=== PATIENT | female | born 1935 | race Caucasian/White ===

== ENCOUNTER 2016-03-25 15:52 | Inpatient (IN) | payer MEDICARE ==
[~2016-03-25] VITALS: Ht 167.6 cm; Wt 65.6 kg
--- NOTE | ~2016-03-25 | CON ---
[place], [place] REPORT OF CONSULTATION NAME: JUAN CARLOS [facility]IAS [facility]: [id number] UNIT #: [id number] ROOM: 522 DOCTOR: SURAJ SHAH MARY BIRTHDATE: [birth year] DOS: PSYCHIATRIC CONSULTATION HISTORY OF PRESENT ILLNESS: This is an 80-year-old female with a history of Alzheimer's dementia that was brought to the Emergency Room by her daughter due to inability to care for herself. The daughter who is the power of attorney lawyer states that she was diagnosed years ago with dementia and has always been able to live on her own and take care of herself, but things have been getting to deteriorate, not taking care of ADLs, bathing, cooking, general care of herself in the home, has become paranoia to combative, to those around her also threatening violence not only to herself and family members, but to the Emergency Room doctor when he was assessing her. Poor memory, poor sleep. She was admitted to rule out organic factors. PAST MEDICAL HISTORY: Includes AFib, CHF, COPD, hypertension. PSYCHIATRIC DIAGNOSIS: AXIS I: Alzheimer dementia with behaviors. PLAN: The patient is not on any dementia meds at this time. She is allergic to RIVASTIGMINE, which is EXELON. We will go ahead and start her on Namenda 5 mg every day to see if I can help a little bit with cognition, decrease behaviors and help increase ADLs. They also gave her a one-time dose of Restoril this morning because she is not sleeping. I am going to discontinue that in lieu of Remeron 15 mg at bedtime. She has got poor appetite, not sleeping and behaviors consistent with sundowning, so I think the Remeron will kind of help with this. We also made p.r.n. Ativan available for now. So far, her labs have been inconclusive. There is nothing significant jumping out on her CBC, her chemistries, I checked the B12 which is within normal range, serum ammonia level is normal, vitamin D still pending. Her thyroid is fine. In fact, she is subtherapeutic with her coagulation for her AFib, and for the most part her urine was negative, there was 1+ leukocytes and that is about it. I discussed with nurses that this person will be an appropriate candidate for the Behavioral Health Unit as the family is agreeable to it. This is conversation that they will have to have. Apparently, Dr. Jane did see her yesterday and deemed her incompetent at this point in time. So, I think we need to rule out all organic possibilities and then we can go from there. So the plan will be go ahead and start the dementia meds and the Remeron. I have already called the unit and told them to be advised if the family members are agreeable, we will go ahead and when she has cleared medically transfer her to Behavioral Health Unit and go from there. [place], [place] REPORT OF CONSULTATION NAME: JUAN CARLOS IGLESIAS Mari UNIT #: [id number] ROOM: 522 DOCTOR: SURAJ SHAH BIRTHDATE: [birth year] MARY SHAH CNP CM:CONSTR:REPORT OF CONSULTATION 0845 05/03/16 1354 interface
--- NOTE | ~2016-03-25 | CON ---
[place], [place] REPORT OF CONSULTATION NAME: [id number] UNIT #: [id number] ROOM: 522 DOCTOR: CHRIS PEPPER ED.D (YARITZA) BIRTHDATE: [birth year] DOS: HISTORY OF PRESENT ILLNESS: The patient is an 80-year-old female referred by the hospitalist for competency evaluation. At the present time, this patient is on the 5th floor at [facility]. The patient did not know whether or not she was any longer and could not name her children. She said she had several children who were very old and she also had several 3-year-old children of her own. Clearly, this is not accurate. She states she did work at [employer] in [place], [place]. She does not know her family physician. Her medical history is pertinent for atrial fibrillation, COPD, congestive heart failure, hypertension and dementia. Her medications include lisinopril, Xarelto, and Zolpidem. Her daughter, Katherine Flores, is the patient's power of state's attorney and is making all decisions for this patient. Her short-term and long-term memory were markedly impaired. In my opinion, this patient is not competent to make informed healthcare decisions. She clearly suffers from major neurocognitive disorder and all decisions regarding her care should be made by her daughter. DIAGNOSIS: Major neurocognitive disorder-Alzheimer disease. RECOMMENDATIONS: In my opinion, all medical and personal decisions regarding this patient should be made by her power of state's attorney, who is apparently her daughter, Katherine Flores. Thank you very much for this consult. CHRIS PEPPER ED.D CM:CONSTR:REPORT OF CONSULTATION 2059 05/03/16 1351 interface
--- NOTE | ~2016-03-25 | PROC NOTE ---
[place], [place] PROCEDURE NOTE NAME: JUAN CARLOS IGLESIAS [facility] #: [id number] UNIT #: [id number] ROOM: 522 DOCTOR: JOSE MORENO BIRTHDATE: [birth year] DOS: 03/29/2016 MODIFIED BARIUM SWALLOW LOCATION: [facility], room 522, bed 1. DATE OF EVALUATION: 03/29/2016. DOCTOR: Dr. Jerome. RADIOLOGIST: Dr. Corbett. BACKGROUND INFORMATION: The patient is an 80-year-old female who was seen for modified barium swallow. This test was ordered to rule out aspiration due to abnormal bedside swallow eval. The patient was admitted due to altered awareness. Further medical history includes MVP murmur, GERD, HTN, emphysema, AFib and Alzheimer disease. She currently receives a regular diet and thin liquids. For today's assessment, the patient was alert and able to follow commands. Respiratory status was within normal limits. Oral peripheral examination revealed presence of upper and lower denture with adequate fit reported. Lingual, labial, and buccal skills were within normal limits in terms of strength, range of motion, and coordination. The patient was able to volitionally cough and swallow. METHODS AND MATERIALS USED FOR THE EXAM: The patient was positioned in the lateral plane and the exam was viewed under fluoroscopy. The patient was presented with a variety of consistencies to assess swallowing skills including applesauce mixed with barium presented in half teaspoon amounts, barium-coated cookie and banana in bite size pieces and thin liquid barium taken both by cup and straw. ORAL PHASE: Unremarkable. PHARYNGEAL PHASE: The pharyngeal swallow occurred within a timely manner. During the swallow, laryngeal elevation and epiglottic function were adequate; however, when patient consumed thin liquids by straw penetration did occur. The patient was consuming a large amount at this time. No residue was observed post-swallow in the pharynx. ESOPHAGEAL PHASE: This phase of the swallow was not formally assessed during this examination. IMPRESSIONS AND RECOMMENDATIONS: Based upon assessment results, this 80-year-old female exhibited a mild pharyngeal dysphagia characterized by penetration with thin liquids when using a straw. No other difficulty was observed. Recommend the patient remain on present diet with liquids to be consumed by cup only. Results and recommendations were shared with the patient and her nurse and they verbalized understanding. Recommend one followup visit to ensure patient's understanding and compliance with recommendation due to her confusion. [place], [place] PROCEDURE NOTE NAME: JUAN CARLOS IGLESIAS UNIT #: [id number] ROOM: 522 DOCTOR: JOSE MORENO BIRTHDATE: [birth year] Thank you very much for this referral. Should you have any questions regarding this patient, please contact the speech pathologist at [phone]. JOSE MORENO CM:PROCNOTE:PROCEDURE NOTE 1034 [id number] JOSE MORENO
[~2016-03-25 15:52] MED LIST: ALBUTEROL SULF0.5 M1 INH; CALCIUM WITH D1 CTB PO; DILTIAZEM HCL30 MG PO; FERROUS SULFAT325 MG PO; GINKO BILOBA60 MG PO; LISINOPRIL/HCTZ1 TAB PO; PROTONIX40 MG PO; SUPER EPA 1001000 MG PO; TAMIFLU 75MG CA75 MG PO; XARE20MG PO
[2016-03-25 16:26] VITALS: BP 129/85
[2016-03-25] MEDS ORDERED: ZOLPIDEM TART5 MG PO (16:47)
[2016-03-25] MEDS ORDERED: LISINOPRIL AND1 TAB PO (16:48)
[2016-03-25 17:49] LABS: BASO % 0.3 % (0.0-1.0); EOS # 0.2 10*3/uL (0.0-0.4); EOS % 3.5 % (1.0-4.0); HEMATOCRIT 42.1 % (37.0-47.0); HEMOGLOBIN 13.6 g/dl (12.0-16.0); LYMPH # 1.7 10*3/uL (1.3-4.4); LYMPH % 25.4 % (27.0-41.0); MEAN CELL VOLUME 97.9 fl (81.0-99.0); MEAN CORPUSCULAR HGB 31.6 pg (27.0-31.0); MEAN CORPUSCULAR HGB CONC 32.3 g/dl (33.0-37.0); MEAN PLATELET VOLUME 9.1 fl (9.6-12.3); MONO # 0.7 10*3/uL (0.1-1.0); MONO % 10.7 % (3.0-9.0); NEUT # 4.1 10*3/uL (2.3-7.9); PLATELET COUNT AUTOMATED 154 10*3/uL (130-400); RED CELL DISTRI WIDTH 13.1 % (0-14.5); WHITE BLOOD COUNT 6.8 10*3/uL (4.8-10.8)
[2016-03-25 18:00] VITALS: BP 124/74
[2016-03-25 18:00] LABS: INTERNATIONAL NORM RATIO 1.1 (2.0-3.5); PROTHROMBIN TIME 11.6 SECONDS (9.0-12.4)
[2016-03-25 18:08] LABS: ALBUMIN 3.3 gm/dl (3.1-4.5); ALKALINE PHOSPHATASE 85 U/L (45-117); BILIRUBIN, TOTAL 0.3 mg/dl (0.2-1.0); BUN 24 mg/dl (7-24); CARBON DIOXIDE 33 mmol/L (21-32); CHLORIDE 102 mmol/L (98-107); CPK 55 U/L (26-192); EST GLOM FILT AFRICAN AMERICAN 58 ml/min; GLUCOSE 96 mg/dL (65-99); MAGNESIUM 1.9 mg/dL (1.5-2.1); SGOT/AST 28 IU/L (3-35); SGPT/ALT 24 U/L (12-78); SODIUM 141 mmol/L (136-145)
[2016-03-25 18:11] LABS: TROPONIN I < 0.015 ng/ml (<0.5)
[2016-03-25 18:52] LABS: BILIRUBIN NEGATIVE (NEGATIVE); BLOOD TRACE-INTACT (NEGATIVE); CLARITY SL CLOUDY (CLEAR); COLOR YELLOW (YELLOW); GLUCOSE NEGATIVE (NEGATIVE); KETONE TRACE (NEGATIVE); LEUKO ESTERASE 1+ (NEGATIVE); NITRITE NEGATIVE (NEGATIVE); PROTEIN NEGATIVE (NEGATIVE)
[2016-03-25 19:14] LABS: URINE REFLEX COMMENT YES (NO); WBC 21-30 wbc/hpf (0-5)
[2016-03-25 20:00] VITALS: BP 130/70
[2016-03-25 23:00] VITALS: BP 140/88
[2016-03-25 23:36] VITALS: BP 149/97
[2016-03-26] VITALS: BP 146/80
[2016-03-26 00:52] LABS: CKMB 1.4 ng/ml (0.5-3.6); CPK 55 U/L (26-192)
[2016-03-26 00:55] LABS: TROPONIN I < 0.015 ng/ml (<0.5)
[2016-03-26 06:01] LABS: BASO % 0.6 % (0.0-1.0); EOS # 0.2 10*3/uL (0.0-0.4); EOS % 3.1 % (1.0-4.0); LYMPH # 1.5 10*3/uL (1.3-4.4); LYMPH % 29.2 % (27.0-41.0); MEAN CELL VOLUME 97.1 fl (81.0-99.0); MEAN CORPUSCULAR HGB 31.6 pg (27.0-31.0); MEAN CORPUSCULAR HGB CONC 32.5 g/dl (33.0-37.0); MONO # 0.6 10*3/uL (0.1-1.0); MONO % 11.1 % (3.0-9.0); NEUT # 2.9 10*3/uL (2.3-7.9); NEUT % 55.6 % (47.0-73.0); PLATELET COUNT AUTOMATED 135 10*3/uL (130-400); RED BLOOD COUNT 4.12 10*6/uL (4.10-5.10); RED CELL DISTRI WIDTH 12.9 % (0-14.5); WHITE BLOOD COUNT 5.1 10*3/uL (4.8-10.8)
[2016-03-26 06:16] LABS: CKMB 1.6 ng/ml (0.5-3.6); CPK 51 U/L (26-192); TROPONIN I < 0.015 ng/ml (<0.5)
[2016-03-26 06:32] LABS: HEMOGLOBIN A1c 5.5 % (4.8-5.6)
[2016-03-26 06:41] LABS: BUN 20 mg/dl (7-24); CARBON DIOXIDE 31 mmol/L (21-32); CHLORIDE 104 mmol/L (98-107); EST GLOM FILT AFRICAN AMERICAN > 60 ml/min; FREE T4 1.23 ng/dl (0.76-1.46); GLUCOSE 85 mg/dL (65-99); MAGNESIUM 1.8 mg/dL (1.5-2.1); PHOSPHOROUS 3.2 mg/dL (2.5-4.9); POTASSIUM 3.9 mmol/L (3.5-5.1); SODIUM 144 mmol/L (136-145)
[2016-03-26 07:15] LABS: VITAMIN D, 25-HYDROXY 26.3 ng/mL (30-100)
[2016-03-26 08:00] VITALS: BP 136/98
[2016-03-26 12:00] VITALS: BP 138/82
[2016-03-26 12:13] LABS: CKMB 1.6 ng/ml (0.5-3.6)
[2016-03-26 12:23] LABS: CPK 72 U/L (26-192); TROPONIN I < 0.015 ng/ml (<0.5)
[2016-03-26 16:00] VITALS: BP 151/88
[2016-03-26 20:00] VITALS: BP 157/84
[2016-03-27 02:45] VITALS: BP 142/82
[2016-03-27 07:07] LABS: FREE THYROXIN INDEX/T7 3.4 (1.5-5.4); THYROID STIM HORMONE (HS) 1.72 uIU/ml (0.358-4.75); THYROXINE (T4) TOTAL 10.1 ug/dl (4.8-13.9)
[2016-03-27 08:00] VITALS: BP 112/72
[2016-03-27 12:00] VITALS: BP 100/50; BP 122/66
[2016-03-27 16:00] VITALS: BP 97/59
[2016-03-27 20:00] VITALS: BP 102/63
[2016-03-28] VITALS: BP 128/69
[2016-03-28 08:00] VITALS: BP 124/54
[2016-03-28 12:00] VITALS: BP 148/79
[2016-03-28 16:00] VITALS: BP 140/58
[2016-03-28 20:00] VITALS: BP 102/54
[2016-03-29] VITALS: BP 119/63
[2016-03-29 08:00] VITALS: BP 118/68
[2016-03-29 12:00] VITALS: BP 139/74
[2016-03-29 16:00] VITALS: BP 130/72
[2016-03-29 20:00] VITALS: BP 126/55
[2016-03-30] VITALS: BP 122/57
== END 2016-03-30 11:17 | disposition other institution (70) | DRG 682 ==
LOC: ED 15:52 → EDHOLD 21:37 → 5E 21:37
PROVIDERS: Nurse Practitioner Adult Health; Student in an Organized Health Care Education/Training Program
PROC: BD11YZZ Fluoroscopy of Esophagus using Other Contrast (ICD-10-PCS; principal; 2016-03-29)
DX: N17.0 Acute kidney failure with tubular necrosis (principal); G93.40 Encephalopathy, unspecified; E44.0 Moderate protein-calorie malnutrition; N39.0 Urinary tract infection, site not specified; I48.0 Paroxysmal atrial fibrillation; J44.9 Chronic obstructive pulmonary disease, unspecified; G30.1 Alzheimer's disease with late onset; I50.9 Heart failure, unspecified; I11.0 Hypertensive heart disease with heart failure; F02.81 Dementia in other diseases classified elsewhere, unspecified severity, with behavioral disturbance; E55.9 Vitamin D deficiency, unspecified; F01.50 Vascular dementia, unspecified severity, without behavioral disturbance, psychotic disturbance, mood disturbance, and anxiety; Z90.710 Acquired absence of both cervix and uterus; Z87.891 Personal history of nicotine dependence; Z82.49 Family history of ischemic heart disease and other diseases of the circulatory system; Z82.0 Family history of epilepsy and other diseases of the nervous system; Z88.8 Allergy status to other drugs, medicaments and biological substances; Z79.899 Other long term (current) drug therapy; Z68.20 Body mass index [BMI] 20.0-20.9, adult

== ENCOUNTER 2016-07-19 17:39 | Inpatient (IN) | payer MEDICARE, MEDICAID ==
[~2016-07-19] VITALS: Ht 167.6 cm; Wt 62.7 kg
--- NOTE | ~2016-07-19 | PROC NOTE ---
[place], [place] PROCEDURE NOTE NAME: JU[facility]AS [id number] UNIT #: [id number] ROOM: 409 DOCTOR: MICHELLE GA MD,MARIA LUZ BIRTHDATE: [birth year] DOS: 07/27/2016 PROCEDURE: Bronchoscopy. PREOPERATIVE DIAGNOSIS: Persistent nonproductive cough, inability to clear of secretion. POSTOPERATIVE DIAGNOSIS: Severe acute tracheobronchitis was noted with removal of the mucopurulent material for the patient, impaction of the mucus plugs and endobronchial tree bilaterally. PROCEDURE DESCRIPTION: Informed consent obtained from the patient. The patient was brought to the OR and placed in supine position. Conscious sedation administered by the Anesthesia Department. After achieving appropriate sedation, airway introduced into the mouth. Bronchoscope advanced to the airway into laryngeal area, epiglottis and vocal cords were seen. The vocal cords were noted yellowish in color moving symmetrically with movements. The bronchoscope entered the vocal cord and tracheal lumen. Tracheal lumen shows moderate amount of very purulent secretion for the patient with mucus secretion mixture suctioned out the yessica level. Yessica noted sharp. Right upper, right middle, right lower, left upper, and lingular lower lobe bronchi were all examined. Similar secretion present in tracheal lumen was causing impaction of the endobronchial tree bilaterally. All secretions suctioned out clear with the help of normal saline wash and sent for cultures. Postoperative findings were discussed with the patient's family members for the patient in the recovery room for the patient after completion of the procedure. No complications were noted during or after the procedure except transient hypoxia treated with supplemental oxygen. No change in treatment will be necessary at this time based on the current culture results. Bronchial washing culture will be monitored for the patient and then modification of antibiotic will be made accordingly. MARIA LUZ MARTINEZ MD CM:PROCNOTE:PROCEDURE NOTE [id number] MARIA LUZ GA MD
--- NOTE | ~2016-07-19 | PR ---
[place], [place] PROGRESS NOTE NAME: JUAN CARLOS IGLESIAS UNIT #: [id number] ROOM: 409 DOCTOR: MARIA LUZ BERNSTEIN MD BIRTHDATE: [birth year] DOS: 07/26/2016 PULMONARY PROGRESS NOTE SUBJECTIVE: The patient has been noted comfortable at this time. She has been noted history of dementia for this patient as well. The patient denies any symptoms of chest pain. Coughing has been noted intermittent for the patient without any sputum expectoration. She was planned for fiberoptic bronchoscopy the patient to be done tomorrow. OBJECTIVE: VITAL SIGNS: For the patient, which were recorded showed the temperature of the patient noted as normal. The respiratory rate of the patient recorded as 20. The heart rate of 58. The blood pressure noted 106/50. HEENT: Examination shows head was atraumatic. Eyes nonicterus. NECK: Supple. CARDIOVASCULAR SYSTEM: S1, S2 audible. LUNGS: The patient was noted without any crackles. Expiratory wheezing noted diffusely in the lungs unchanged. ABDOMEN: Soft, nontender. LABORATORY DATA: CBC this morning, hemoglobin 11.9, hematocrit normal, platelet count normal, WBC count was normal. CMP of the patient this morning, BUN 32, creatinine was normal. Total protein of 5.9. IMPRESSION: The patient who had been currently treated in the hospital for the patient for the medical management of acute hypoxic respiratory failure with exacerbation of chronic obstructive pulmonary disease for this patient and tracheobronchitis, incident finding 7 mm pulmonary nodule, history of dementia. PLAN OF TREATMENT: Proceed with the bronchoscopy of the patient as planned for the patient tomorrow morning. The consent will be obtained from the patient's family members for the bronchoscopy. No other changes in treatment at this time will be needed immediately. The pulmonary nodule of the patient noted in the lung will be monitored later on as an outpatient. [place], [place] PROGRESS NOTE NAME: JUAN CARLOS IGLESIAS UNIT #: [id number] ROOM: 409 DOCTOR: MARIA LUZ BERNSTEIN MD BIRTHDATE: [birth year] MARIA LUZ MARTINEZ MD CM:RONALD [place]: 07/26/16 1415 0629 MARIA LUZ GA MD 07/27/16 0629 interface
--- NOTE | ~2016-07-19 | PR ---
[place], [place] PROGRESS NOTE NAME: JUAN CARLOS IGLESIAS [facility] #: [id number] UNIT #: [id number] ROOM: 409 DOCTOR: MICHELLE GA MD,MARIA LUZ BIRTHDATE: [birth year] DOS: 07/27/2016 PULMONARY PROGRESS NOTE SUBJECTIVE: She has been noted about the same for the patient yesterday with nonproductive cough and chest congestion. She is n.p.o. past midnight. Bronchoscopy planned for today. She had not been noted with any acute hemodynamic changes. OBJECTIVE: VITAL SIGNS: For the patient, which were recorded showed the temperature of the patient noted as normal. The respiratory rate of the patient recorded at 20, heart rate 86, blood pressure 107/74. The pulse oxygen saturation of the patient noted on 2 liters 97% saturation. HEENT: Examination shows head was atraumatic. Eyes nonicterus. NECK: Supple. CARDIOVASCULAR SYSTEM: S1, S2 audible. LUNGS: Noted with general reduction in the breath sounds of the patient with expiratory wheezing, no crackles. ABDOMEN: Soft, nontender. IMPRESSION: 1. Persistent acute exacerbation of chronic obstructive pulmonary disease, nonproductive cough. 2. History of Alzheimer dementia. The patient is pleasant, confusion. PLAN OF TREATMENT: Continue the patient's current therapy as previously in progress. Bronchoscopy done today. Any modification treatment if necessary will be done after the bronchoscopy. MARIA LUZ MARTINEZ MD CM:PNTRANS [phone] MARIA LUZ GA MD 07/28/16 0131 interface
--- NOTE | ~2016-07-19 | PR ---
[place], [place] PROGRESS NOTE NAME: JUAN CARLOS IGLESIAS UNIT #: [id number] ROOM: 409 DOCTOR: MARIA LUZ BERNSTEIN MD BIRTHDATE: [birth year] DOS: 07/28/2016 PULMONARY PROGRESS NOTE SUBJECTIVE: She has been noted pleasant and confusion, currently resting comfortably with reduction and improvement in the chest congestion. Cough was noted on examination. OBJECTIVE: VITAL SIGNS: For the patient, which was recorded shows the temperature noted as normal, respiratory rate 18, heart rate 77, blood pressure . Pulse oxygen saturation on 2 liters nasal cannula 95% saturation. HEENT: Examination shows no new change. NECK: Supple. CARDIOVASCULAR SYSTEM: S1, S2 audible. LUNGS: The patient was noted without any wheezing or crackles at the present time. ABDOMEN: Soft, nontender. LABORATORY DATA: Culture of the bronchial washing preliminary showing normal jennifer. The Gram stain shows moderate white blood cells, few epithelial cells, moderate gram-positive cocci in pairs and clusters with few budding yeast. IMPRESSION: 1. Status post bronchoscopy for the patient with significant reduction and improvement in respiratory symptoms. Preliminary bronchial washing culture for the patient was noted without any bacterial growth isolation. 2. Improving acute exacerbation of chronic obstructive pulmonary disease and acute tracheobronchitis. 3. Chronic Alzheimer dementia. PLAN OF TREATMENT: The patient could be considered for discharge to the [facility] facility for this patient for continued treatment. In the meantime, all other treatment to be continued. Usual care. Culture results will be monitored. [place], [place] PROGRESS NOTE NAME: JUAN CARLOS IGLESIAS UNIT #: [id number] ROOM: 409 DOCTOR: MARIA LUZ BERNSTEIN MD BIRTHDATE: [birth year] MARIA LUZ MARTINEZ MD CM:PNTRANS [phone] MARIA LUZ GA MD 07/28/16 7555 interface
--- NOTE | ~2016-07-19 | CON ---
[place], [place] REPORT OF CONSULTATION NAME: JUAN CARLOS IGLESIAS UNIT #: [id number] ROOM: 409 DOCTOR: MICHELLE GA MD,MARIA LUZ BIRTHDATE: [birth year] DOS: 07/22/2016 PULMONARY CONSULTATION EVALUATION AND MANAGEMENT CONSULTATION REQUESTED BY: Hospitalist services. REASON FOR CONSULTATION: Assess the patient for ongoing acute respiratory symptoms of coughing and wheezing for this patient as well as pulmonary nodule as well. HISTORY OF PRESENT ILLNESS: This is an 81-year-old female patient with history of Alzheimer dementia, unable to communicate verbally and more accurately for the patient for the history has been assessed. The patient has been admitted in the hospital under care of primary care attending as the hospitalist services. The patient's symptoms have been noted with gradual progression for the patient with chest congestion, coughing, and decreased appetite and fever. The patient was also noted with significant hypoxia as well. The patient has been suspected possibility of acute pneumonia for this patient and treated with Rocephin intravenous, but the patient failed to respond to the treatment. The oxygen saturation of the patient was recorded as 70% for this patient in the Emergency Room at the time of the assessment. The patient was also noted more confusional status as described by the patient's family members. She has been currently getting intravenous antibiotic and other treatment including oxygen supplementation for the medical management of the current respiratory failure and ongoing other respiratory problems. REVIEW OF SYSTEMS: Constitutional symptoms cannot be completed because of inability to verbally communicate with history of underlying dementia. No family members have been available at this time to discuss the current findings for this patient as well. PAST MEDICAL HISTORY: Reported, 1. Atrial fibrillation. 2. Congestive heart failure, unknown kind. 3. History of COPD. 4. Essential hypertension. 5. Osteopetrosis. 6. Protein calorie malnutrition. 7. Vitamin D deficiency. 8. Alzheimer dementia. SURGICAL HISTORY: Reported as, 1. History of hip surgery on the left side for the patient and repair in 2017. 2. History of hysterectomy. 3. Lower back surgery. SOCIAL HISTORY: The patient has been noted with history of tobacco use, duration and quantity unknown. There is no history of alcohol use or illicit drug use was reported. [place], [place] REPORT OF CONSULTATION NAME: NELI IGLESIASCHERYL Guerra UNIT #: [id number] ROOM: 409 DOCTOR: MICHELLE GA MD,MARIA LUZ BIRTHDATE: [birth year] FAMILY HISTORY: Father at the age of 8080 years old from complications of heart problem. Mother at the age of 6666 years old from complications of Alzheimer dementia. HOME MEDICATIONS: Noted for the patient medication which has became previously noted as use of Xanax, Rocephin, Tussin-DM, Vicodin, DuoNeb, lisinopril-hydrochlorothiazide, loratadine, melatonin, multivitamin, omeprazole, Xarelto, sertraline, Nasacort and other p.r.n. medications. The patient was also receiving Rocephin 1 gram for this patient daily as well. DRUG ALLERGIES: Noted allergies to the EXELON PATCH. PHYSICAL EXAMINATION: GENERAL: This is an 81-year-old female who has been noted with Alzheimer dementia for this patient, but noted awake and alert without any distress at the time of the assessment. Height for the patient was noted 5 feet 6 inches, weight 127 pounds, BMI 20.5. VITAL SIGNS: Normal temperature, respiratory rate 18-20, heart rate of 87-95, blood pressure 137/63-138/62. The pulse oxygen saturation on 2 liters nasal cannula at this time was noted as 94% saturation. HEENT: Head was atraumatic. Eyes: No icterus. Some loss of muscles of mastication. NECK: Supple. CARDIOVASCULAR SYSTEM: S1, S2 audible. LUNGS: Noted without any wheezing. Questionable crackles noted in the lung bases bilaterally. ABDOMEN: Flat, soft, nontender. EXTREMITIES: Shows no edema, clubbing, or cyanosis. CENTRAL NERVOUS SYSTEM: Could not be examined, the patient's lack of cooperation and understanding the questions. SKIN: Visible skin showed no lesions or rashes. MUSCULOSKELETAL SYMPTOMS: No gross deformities noted. LABORATORY DATA: Admission lactic acid on July 19, 2.1, followup for this patient on same day 1.3. CBC of the patient of 07/19 on admission were noted normal CBC. CMP for the patient on 07/19, normal BUN and creatinine, other electrolytes normal except CO2 mildly elevated at 34. The blood culture from the 07/19, showed no bacterial growth. Final culture results were pending. CBC of the patient remains normal for the patient which were repeated on 07/21. The BMP of the patient on 07/21, noted BUN 27, creatinine was normal. Potassium yesterday was noted at 3.2. The BMP that was done this morning, BUN remains mildly elevated 25. The potassium and other electrolytes noted grossly normal. Blood culture from the 9th of this month shows no bacterial growth. CK-MB and troponin of the patient were normal on and , which were done serially. Radiology data reviewed for this patient. The chest x-ray of the patient that was done on 07/19/2016 for the patient was reviewed with the patient shows changes of COPD for this patient was noted with hyperinflation without any acute pulmonary infiltration. CT scan of the chest for the patient was done shows 7 mm nodule was noted in the left lower lobe for the patient without any evidence of pulmonary infiltration, diffuse emphysematous changes for the patient were [place], [place] REPORT OF CONSULTATION NAME: JUAN CARLOS IGLESIAS UNIT #: [id number] ROOM: 409 DOCTOR: MARIA LUZ BERNSTEIN MD BIRTHDATE: [birth year] noted. There were no previous CT scans of the chest were available for the patient to assess and compare the current pulmonary nodule. IMPRESSION: 1. The patient who has been currently admitted to the hospital for acute hypoxic respiratory failure, result of acute exacerbation of chronic obstructive pulmonary disease and acute tracheobronchitis with failed outpatient treatment. 2. Incidental finding of a 7 mm nodule for the patient was noted in the left lower lobe for the patient in subpleural area at this time, significance unknown. 3. Past history of nicotine abuse was also described. 4. History of Alzheimer dementia for the patient and multiple other medical problems. PLAN OF TREATMENT: Continue use of the bronchodilators and oxygen supplementation for this patient at this time and use of Solu-Medrol. The dose of Solu-Medrol for the patient will be decreased to b.i.d. dosing since the patient's wheezing has been improving at the present time. Continue the oxygen supplementation to maintain the saturation 92% or greater. Assessment of pulmonary nodule for the patient needs to be done as an outpatient with followup CT scan for this patient since the PET scan will have low sensitivity because of the size of less than 10 mm in size. Sputum for Gram stain culture for the patient if the patient is able to expectorate for this patient could be sent. Other therapy, plan and management to be continued as in progress as well. Usual care, all other supportive plan of therapy and care at this time without any further changes. Thanks for allowing me to participate in the care of this patient. MARIA LUZ MARTINEZ MD CM:CONSTR:REPORT OF CONSULTATION 1423 07/23/16 0659 interface
--- NOTE | ~2016-07-19 | PR ---
[place], [place] PROGRESS NOTE NAME: JUAN CARLOS IGLESIAS UNIT #: [id number] ROOM: 409 DOCTOR: MARIA LUZ BERNSTEIN MD BIRTHDATE: [birth year] DOS: 07/25/2016 PULMONARY PROGRESS NOTE SUBJECTIVE: She has been still noted with significant chest congestion and coughing, not expectorating much sputum. She was not noted with symptoms of chest pain. The patient has been noted with chronic dementia, unable to most likely accurately answer the questions. She was noted with excessive coughing at the time of assessment. OBJECTIVE: VITAL SIGNS: For the patient shows a normal temperature, respiratory rate 18, heart rate 96, blood pressure 95/55. Pulse oxygen saturation of the patient noted on 2 liters nasal cannula 97% saturation. HEENT: Examination shows head was atraumatic. Eyes nonicterus. CARDIOVASCULAR: S1, S2 audible. LUNGS: Noted decreased breath sounds with inspiratory wheezing. No crackles. ABDOMEN: Soft, nontender. LABORATORY DATA: The patient's CBC this morning, WBC count 9.3, hemoglobin 11.9, platelet count was noted 195,000. CMP of the patient this morning noted BUN 32, creatinine was normal. Albumin of 2.8. IMPRESSION: The patient with persistent coughing, wheezing was still noted at the present time with acute hypoxic respiratory failure and exacerbation of chronic obstructive pulmonary disease and tracheobronchitis. Retained secretion of the patient's mucus impaction of the airways was noted. PLAN OF TREATMENT: The patient was suggested fiberoptic bronchoscopy for the further management of patient's persistent cough and wheezing with current maximum medical therapy. The procedure consent will be obtained from the family members, if agreeable for that, it will be done for the patient on Monday based on the schedule availability in the OR. Other treatment plan at this time will be continued otherwise. Usual care. Supportive plan of therapy and other medical management, plan. [place], [place] PROGRESS NOTE NAME: JUAN CARLOS IGLESIAS UNIT #: [id number] ROOM: 409 DOCTOR: MARIA LUZ BERNSTEIN MD BIRTHDATE: [birth year] MARIA LUZ MARTINEZ MD CM:PNTRANS [id number] MARIA LUZ GA MD 07/26/16 0050 interface
[2016-07-19 17:39] VITALS: BP 96/63
[~2016-07-19 17:39] MED LIST changes: +LISINOPRIL AND1 TAB PO; +ZOLPIDEM TART5 MG PO
[2016-07-19 18:10] LABS: HEMOGLOBIN 13.6 g/dl (12.0-16.0); MEAN PLATELET VOLUME 9.3 fl (9.6-12.3)
[2016-07-19] MEDS ORDERED: DUONEB 3 MG/3 ML3 M1 INH (18:10)
[2016-07-19] MEDS ORDERED: CLARITIN10 MG PO (18:10)
[2016-07-19] MEDS ORDERED: MELATONIN3 MG PO (18:11)
[2016-07-19] MEDS ORDERED: LISINOPRIL-HYDR1 TA1 PO (18:11)
[2016-07-19] MEDS ORDERED: HYDROCODONE BIT1 T11 PO (18:11)
[2016-07-19] MEDS ORDERED: NASACORT A55 MCG/Act NS (18:12)
[2016-07-19] MEDS ORDERED: MULTIPLE VITAMI1 TA3 PO (18:12)
[2016-07-19] MEDS ORDERED: CEFTRIAXONE1 GM IJ (18:12)
[2016-07-19] MEDS ORDERED: OMEPRAZOLE20 M2 PO (18:12)
[2016-07-19] MEDS ORDERED: NATURAL LAXATI8.6 MG PO (18:13)
[2016-07-19] MEDS ORDERED: TUSSIN COU15 MG/5 ML PO (18:13)
[2016-07-19] MEDS ORDERED: TYLENOL325 M1 PO (18:14)
[2016-07-19] MEDS ORDERED: XANAX0.25 MG PO (18:14)
[2016-07-19] MEDS ORDERED: XARELTO15 M1 PO (18:14)
[2016-07-19] MEDS ORDERED: ZOLOFT50 MG PO (18:15)
[2016-07-19 18:30] LABS: ALBUMIN 3.4 gm/dl (3.1-4.5); ALKALINE PHOSPHATASE 74 U/L (45-117); BILIRUBIN, TOTAL 0.3 mg/dl (0.2-1.0); BUN 24 mg/dl (7-24); CARBON DIOXIDE 34 mmol/L (21-32); CHLORIDE 100 mmol/L (98-107); EST GLOM FILT AFRICAN AMERICAN > 60 ml/min; GLUCOSE 124 mg/dL (65-99); POTASSIUM 4.1 mmol/L (3.5-5.1); SGOT/AST 32 IU/L (3-35); SGPT/ALT 22 U/L (12-78); SODIUM 138 mmol/L (136-145); TOTAL PROTEIN 7.4 gm/dL (6.4-8.2)
[2016-07-19 18:31] LABS: BASO % 0.4 % (0.0-1.0); EOS # 0.1 10*3/uL (0.0-0.4); HEMATOCRIT 42.9 % (37.0-47.0); LYMPH # 1.3 10*3/uL (1.3-4.4); LYMPH % 26.2 % (27.0-41.0); MEAN CELL VOLUME 97.1 fl (81.0-99.0); MEAN CORPUSCULAR HGB 30.8 pg (27.0-31.0); MEAN CORPUSCULAR HGB CONC 31.7 g/dl (33.0-37.0); MONO # 0.6 10*3/uL (0.1-1.0); MONO % 12.5 % (3.0-9.0); NEUT % 59.9 % (47.0-73.0); PLATELET COUNT AUTOMATED 132 10*3/uL (130-400); RED BLOOD COUNT 4.42 10*6/uL (4.10-5.10); RED CELL DISTRI WIDTH 13.4 % (0-14.5); TROPONIN I < 0.015 ng/ml (<0.045)
[2016-07-19 18:41] LABS: ATYPICAL LYMPHS 1 % (0-0); BASOPHIL # 0.1 10*3/uL (0-0.1); BASOPHILS 1 % (0-1); LYMPHOCYTE # 1.6 10*3/uL (1.3-4.4); MONOCYTE # 0.4 10*3/uL (0.1-1.0); NEUTROPHILS 59 % (47-73); POLYCHROMASIA SLIGHT; TOTAL CELLS COUNTED 100 #CELLS
[2016-07-19 18:42] LABS: PLATELET SUFFICIENCY NORMAL (NORMAL)
[2016-07-19 19:09] VITALS: BP 106/53
[2016-07-19 20:06] LABS: LA>2 REFLEX 2 HR DRAW NOW
[2016-07-19 20:30] VITALS: BP 131/60
[2016-07-20] VITALS: BP 135/70
[2016-07-20 00:28] LABS: CKMB 2.3 ng/ml (0.5-3.6); CPK 66 U/L (26-192); TROPONIN I < 0.015 ng/ml (<0.045)
[2016-07-20 06:19] LABS: HEMATOCRIT 38.3 % (37.0-47.0); HEMOGLOBIN 12.1 g/dl (12.0-16.0); MEAN CELL VOLUME 96.7 fl (81.0-99.0); MEAN CORPUSCULAR HGB 30.6 pg (27.0-31.0); MEAN CORPUSCULAR HGB CONC 31.6 g/dl (33.0-37.0); MEAN PLATELET VOLUME 9.2 fl (9.6-12.3); PLATELET COUNT AUTOMATED 123 10*3/uL (130-400); RED BLOOD COUNT 3.96 10*6/uL (4.10-5.10); RED CELL DISTRI WIDTH 13.4 % (0-14.5); WHITE BLOOD COUNT 2.7 10*3/uL (4.8-10.8)
[2016-07-20 06:27] LABS: CKMB 2.3 ng/ml (0.5-3.6); CPK 55 U/L (26-192)
[2016-07-20 06:30] LABS: TROPONIN I < 0.015 ng/ml (<0.045)
[2016-07-20 06:31] LABS: HEMOGLOBIN A1c 5.7 % (4.8-5.6)
[2016-07-20 06:45] LABS: BUN 22 mg/dl (7-24); CARBON DIOXIDE 30 mmol/L (21-32); CHLORIDE 105 mmol/L (98-107); GLUCOSE 161 mg/dL (65-99); MAGNESIUM 1.9 mg/dL (1.5-2.1); PHOSPHOROUS 2.9 mg/dL (2.5-4.9); POTASSIUM 3.8 mmol/L (3.5-5.1); SODIUM 143 mmol/L (136-145); TRIGLYCERIDES 41 mg/dl (<150); VLDL CHOLESTEROL 8 mg/dL (6-40)
[2016-07-20 06:46] LABS: ATYPICAL LYMPHS 1 % (0-0); LYMPHOCYTE # 0.6 10*3/uL (1.3-4.4); MONOCYTE # 0.1 10*3/uL (0.1-1.0); NEUTROPHILS 74 % (47-73); PLATELET SUFFICIENCY LOW (NORMAL); TOTAL CELLS COUNTED 100 #CELLS
[2016-07-20 06:56] LABS: CHOLESTEROL 169 mg/dL (<200); EST GLOM FILT AFRICAN AMERICAN > 60 ml/min; FREE T4 1.23 ng/dl (0.76-1.46); HDL CHOLESTEROL 107 mg/dl (40-60); LDL CHOLESTEROL 54 mg/dL (9-159); THYROID STIM HORMONE (HS) 0.398 uIU/ml (0.358-4.75)
[2016-07-20 08:00] VITALS: BP 117/62
[2016-07-20 12:00] VITALS: BP 103/74
[2016-07-20 12:40] LABS: CKMB 2.7 ng/ml (0.5-3.6); CPK 57 U/L (26-192)
[2016-07-20 12:41] LABS: TROPONIN I < 0.015 ng/ml (<0.045)
[2016-07-20 16:00] VITALS: BP 116/63
[2016-07-20 20:00] VITALS: BP 113/56
[2016-07-21] VITALS: BP 104/89
[2016-07-21 06:14] LABS: BUN 27 mg/dl (7-24); CARBON DIOXIDE 30 mmol/L (21-32); CHLORIDE 106 mmol/L (98-107); EST GLOM FILT AFRICAN AMERICAN > 60 ml/min; GLUCOSE 95 mg/dL (65-99); POTASSIUM 3.2 mmol/L (3.5-5.1); SODIUM 143 mmol/L (136-145)
[2016-07-21 06:40] LABS: HEMATOCRIT 38.2 % (37.0-47.0); MEAN CORPUSCULAR HGB 30.5 pg (27.0-31.0); MEAN CORPUSCULAR HGB CONC 31.4 g/dl (33.0-37.0); MEAN PLATELET VOLUME 9.6 fl (9.6-12.3); PLATELET COUNT AUTOMATED 157 10*3/uL (130-400); RED BLOOD COUNT 3.94 10*6/uL (4.10-5.10); RED CELL DISTRI WIDTH 13.5 % (0-14.5)
[2016-07-21 07:30] LABS: ATYPICAL LYMPHS 1 % (0-0); LYMPHOCYTE # 0.7 10*3/uL (1.3-4.4); MONOCYTE # 0.6 10*3/uL (0.1-1.0); NEUTROPHIL # 8.7 10*3/uL (2.3-7.9); NEUTROPHILS 87 % (47-73); PLASMA CELL 1 % (0-0); PLATELET SUFFICIENCY NORMAL (NORMAL); TOTAL CELLS COUNTED 100 #CELLS
[2016-07-21 08:00] VITALS: BP 139/85
[2016-07-21 12:00] VITALS: BP 119/71
[2016-07-21 16:00] VITALS: BP 136/79
[2016-07-21 20:00] VITALS: BP 125/76
[2016-07-22] VITALS: BP 141/75
[2016-07-22 07:28] LABS: BUN 25 mg/dl (7-24); CARBON DIOXIDE 32 mmol/L (21-32); CHLORIDE 103 mmol/L (98-107); EST GLOM FILT AFRICAN AMERICAN > 60 ml/min; GLUCOSE 123 mg/dL (65-99); POTASSIUM 4.1 mmol/L (3.5-5.1); SODIUM 143 mmol/L (136-145)
[2016-07-22 08:00] VITALS: BP 137/63
[2016-07-22 08:30] VITALS: BP 110/80
[2016-07-22 12:00] VITALS: BP 138/62
[2016-07-22 16:00] VITALS: BP 117/64
[2016-07-22 20:00] VITALS: BP 125/80
[2016-07-23] VITALS: BP 123/66
[2016-07-23 08:00] VITALS: BP 110/78
[2016-07-23 12:00] VITALS: BP 144/90
[2016-07-23 16:00] VITALS: BP 120/71
[2016-07-23 20:35] VITALS: BP 151/85
[2016-07-23 23:38] VITALS: BP 150/64
[2016-07-24 08:00] VITALS: BP 106/66
[2016-07-24 12:00] VITALS: BP 106/64
[2016-07-24 16:00] VITALS: BP 120/67
[2016-07-24 20:00] VITALS: BP 90/62
[2016-07-24 23:51] VITALS: BP 126/70
[2016-07-25 06:09] LABS: BASO % 0.1 % (0.0-1.0); HEMATOCRIT 37.6 % (37.0-47.0); HEMOGLOBIN 11.9 g/dl (12.0-16.0); IG # 0.1 10*3/uL (0.0-0.1); LYMPH # 0.7 10*3/uL (1.3-4.4); LYMPH % 7.4 % (27.0-41.0); MEAN CELL VOLUME 94.9 fl (81.0-99.0); MEAN CORPUSCULAR HGB 30.1 pg (27.0-31.0); MEAN CORPUSCULAR HGB CONC 31.6 g/dl (33.0-37.0); MEAN PLATELET VOLUME 9.2 fl (9.6-12.3); MONO # 0.5 10*3/uL (0.1-1.0); MONO % 5.2 % (3.0-9.0); PLATELET COUNT AUTOMATED 195 10*3/uL (130-400); RED BLOOD COUNT 3.96 10*6/uL (4.10-5.10); RED CELL DISTRI WIDTH 13.4 % (0-14.5); WHITE BLOOD COUNT 9.3 10*3/uL (4.8-10.8)
[2016-07-25 06:41] LABS: ALBUMIN 2.8 gm/dl (3.1-4.5); BUN 32 mg/dl (7-24); CARBON DIOXIDE 31 mmol/L (21-32); CHLORIDE 101 mmol/L (98-107); GLUCOSE 147 mg/dL (65-99); POTASSIUM 4.4 mmol/L (3.5-5.1); SODIUM 140 mmol/L (136-145)
[2016-07-25 06:46] LABS: ALKALINE PHOSPHATASE 79 U/L (45-117); BILIRUBIN, TOTAL 0.4 mg/dl (0.2-1.0); EST GLOM FILT AFRICAN AMERICAN > 60 ml/min; SGOT/AST 22 IU/L (3-35); SGPT/ALT 23 U/L (12-78); TOTAL PROTEIN 5.9 gm/dL (6.4-8.2)
[2016-07-25 08:00] VITALS: BP 96/55
[2016-07-25 12:00] VITALS: BP 109/63
[2016-07-25 16:00] VITALS: BP 109/57
[2016-07-25 20:00] VITALS: BP 118/55
[2016-07-26] VITALS: BP 120/60
[2016-07-26 08:00] VITALS: BP 115/73
[2016-07-26 12:00] VITALS: BP 106/50
[2016-07-26 15:50] VITALS: BP 93/67
[2016-07-26 20:00] VITALS: BP 104/70
[2016-07-27] VITALS (9 sets, daily range): BP systolic 90–141; BP diastolic 35–74
[2016-07-28] VITALS: BP 100/53
[2016-07-28 08:00] VITALS: BP 104/56
[2016-07-28 12:00] VITALS: BP 100/52
[2016-07-28] MEDS ORDERED: PREDNISONE10 MG PO (13:55)
[2016-07-28 18:10] LABS: ACID FAST SPEC PROCESSING Concentration (.)
== END 2016-07-28 15:06 | disposition other institution (70) | DRG 871 ==
LOC: ED 17:39 → EDHOLD 18:55 → 4E 18:55
PROVIDERS: Family Medicine; Internal Medicine; Internal Medicine Critical Care Medicine; Registered Nurse; Student in an Organized Health Care Education/Training Program
PROC: 0BC28ZZ Extirpation of Matter from Carina, Via Natural or Artificial Opening Endoscopic (ICD-10-PCS; principal; 2016-07-27)
PROC: 0BC18ZZ Extirpation of Matter from Trachea, Via Natural or Artificial Opening Endoscopic (ICD-10-PCS; 2016-07-27)
PROC: 0BC98ZZ Extirpation of Matter from Lingula Bronchus, Via Natural or Artificial Opening Endoscopic (ICD-10-PCS; 2016-07-27)
PROC: 0BC88ZZ Extirpation of Matter from Left Upper Lobe Bronchus, Via Natural or Artificial Opening Endoscopic (ICD-10-PCS; 2016-07-27)
PROC: 0BCB8ZZ Extirpation of Matter from Left Lower Lobe Bronchus, Via Natural or Artificial Opening Endoscopic (ICD-10-PCS; 2016-07-27)
PROC: 0BC68ZZ Extirpation of Matter from Right Lower Lobe Bronchus, Via Natural or Artificial Opening Endoscopic (ICD-10-PCS; 2016-07-27)
PROC: 0BC58ZZ Extirpation of Matter from Right Middle Lobe Bronchus, Via Natural or Artificial Opening Endoscopic (ICD-10-PCS; 2016-07-27)
PROC: 0BC48ZZ Extirpation of Matter from Right Upper Lobe Bronchus, Via Natural or Artificial Opening Endoscopic (ICD-10-PCS; 2016-07-27)
DX: A41.9 Sepsis, unspecified organism (principal); J18.9 Pneumonia, unspecified organism; J96.21 Acute and chronic respiratory failure with hypoxia; I11.0 Hypertensive heart disease with heart failure; E44.0 Moderate protein-calorie malnutrition; I50.32 Chronic diastolic (congestive) heart failure; J44.0 Chronic obstructive pulmonary disease with (acute) lower respiratory infection; J47.1 Bronchiectasis with (acute) exacerbation; J44.1 Chronic obstructive pulmonary disease with (acute) exacerbation; G30.9 Alzheimer's disease, unspecified; I48.91 Unspecified atrial fibrillation; F02.80 Dementia in other diseases classified elsewhere, unspecified severity, without behavioral disturbance, psychotic disturbance, mood disturbance, and anxiety; R65.20 Severe sepsis without septic shock; M81.0 Age-related osteoporosis without current pathological fracture; Z82.49 Family history of ischemic heart disease and other diseases of the circulatory system; Z88.8 Allergy status to other drugs, medicaments and biological substances; Z68.20 Body mass index [BMI] 20.0-20.9, adult; R91.1 Solitary pulmonary nodule; E87.6 Hypokalemia; J40 Bronchitis, not specified as acute or chronic

== ENCOUNTER 2017-08-11 12:47 | Emergency (ER) | payer MEDICARE, MEDICAID ==
[~2017-08-11] VITALS: Ht 170.1 cm; Wt 74.8 kg
[2017-08-11 12:47] VITALS: BP 100/62
[~2017-08-11 12:47] MED LIST changes: +CEFTRIAXONE1 GM IJ; +CLARITIN10 MG PO; +DUONEB 3 MG/3 ML3 M1 INH; +HYDROCODONE BIT1 T11 PO; +LISINOPRIL-HYDR1 TA1 PO; +MELATONIN3 MG PO; +MULTIPLE VITAMI1 TA3 PO; +NASACORT A55 MCG/Act NS; +NATURAL LAXATI8.6 MG PO; +OMEPRAZOLE20 M2 PO; +PREDNISONE10 MG PO; +TUSSIN COU15 MG/5 ML PO; +TYLENOL325 M1 PO; +XANAX0.25 MG PO; +XARELTO15 M1 PO; +ZOLOFT50 MG PO
[2017-08-11 13:36] LABS: BASO % 0.4 % (0.0-1.0); EOS # 0.4 10*3/uL (0.0-0.4); EOS % 5.1 % (1.0-4.0); HEMATOCRIT 32.4 % (37.0-47.0); HEMOGLOBIN 9.1 g/dl (12.0-16.0); LYMPH # 1.6 10*3/uL (1.3-4.4); LYMPH % 22.7 % (27.0-41.0); MEAN CELL VOLUME 73.8 fl (81.0-99.0); MEAN CORPUSCULAR HGB 20.7 pg (27.0-31.0); MEAN CORPUSCULAR HGB CONC 28.1 g/dl (33.0-37.0); MEAN PLATELET VOLUME 8.4 fl (9.6-12.3); MONO # 0.7 10*3/uL (0.1-1.0); MONO % 9.1 % (3.0-9.0); NEUT # 4.5 10*3/uL (2.3-7.9); NEUT % 62.6 % (47.0-73.0); PLATELET COUNT AUTOMATED 300 10*3/uL (130-400); RED BLOOD COUNT 4.39 10*6/uL (4.10-5.10); WHITE BLOOD COUNT 7.2 10*3/uL (4.8-10.8)
[2017-08-11 13:50] LABS: ALBUMIN 3.5 gm/dl (3.1-4.5); ALKALINE PHOSPHATASE 83 U/L (45-117); BUN 27 mg/dl (7-24); CHLORIDE 103 mmol/L (98-107); CREATININE 0.86 mg/dL (0.55-1.02); POTASSIUM 4.5 mmol/L (3.5-5.1); SGOT/AST 21 IU/L (3-35); SGPT/ALT 12 U/L (12-78); SODIUM 140 mmol/L (136-145); TOTAL PROTEIN 7.3 gm/dL (6.4-8.2)
[2017-08-11 13:51] LABS: TROPONIN I < 0.015 ng/ml (<0.045)
[2017-08-11 13:52] LABS: ACT PARTIAL THROMBO TIME 28.1 SECONDS (20.8-31.5)
== END 2017-08-11 14:27 | disposition home or self-care (01) ==
LOC: ED 12:47
PROVIDERS: Nurse Practitioner Family
DX: D64.9 Anemia, unspecified (principal); I48.91 Unspecified atrial fibrillation; I11.0 Hypertensive heart disease with heart failure; I50.9 Heart failure, unspecified; J44.9 Chronic obstructive pulmonary disease, unspecified; G30.8 Other Alzheimer's disease; F02.80 Dementia in other diseases classified elsewhere, unspecified severity, without behavioral disturbance, psychotic disturbance, mood disturbance, and anxiety; Z98.890 Other specified postprocedural states; Z90.710 Acquired absence of both cervix and uterus; Z87.891 Personal history of nicotine dependence; Z87.01 Personal history of pneumonia (recurrent); Z79.899 Other long term (current) drug therapy; Z88.8 Allergy status to other drugs, medicaments and biological substances

== ENCOUNTER → 2017-12-14 | Outpatient (CLI) | payer MEDICARE, MEDICAID | END | disposition home or self-care (01) | LOC: CT 03:22 | DX: K57.30 Diverticulosis of large intestine without perforation or abscess without bleeding (principal); R31.9 Hematuria, unspecified ==

== ENCOUNTER 2018-11-24 11:28 | Inpatient (IN) | payer MEDICARE, MEDICAID ==
[~2018-11-24] VITALS: Ht 162.5 cm; Wt 62.1 kg
--- NOTE | ~2018-11-24 | EKG ---
[place], [place] ELECTROCARDIOGRAM REPORT NAME: JUAN CARLOS IGLESIAS UNIT #: [id number] ROOM: 512 DOCTOR: YAMILETH DRAFT REPORT BIRTHDATE: [birth year] [facility] Test Date: 2018-11-24 Test Time: 12:15:22 Pat Name: JUAN CARLOS IGLESIAS Department: Room: 512 Gender: F [employer] Operator: : [id number] Requested By: MAJO BARRON Order Number: [id number] Reading MD: Wilda Carey Measurements Intervals [place] Rate: 103 P: IN: QRS: -77 QRSD: 64 T: 16 QT: 389 QTc: 509 Interpretive Statements Atrial fibrillation Abnormal R-wave progression, late transition Inferior infarct, age indeterminate Prolonged QT interval Electronically Signed On 11-25-2018 11:08:53 PDT by Wilda Carey CM:EKGRPT:ELECTROCARDIOGRAM REPORT [id number] MAJO GLASS DRAFT REPORT MAJO BARRON DO
[~2018-11-24 11:28] MED LIST changes: +LISINOPRIL-HCT1 EACH PO; -LISINOPRIL-HYDR1 TA1 PO; -NATURAL LAXATI8.6 MG PO; -OMEPRAZOLE20 M2 PO; +OMEPRAZOLE40 MG PO; +SENOKOT8.6 MG PO
[2018-11-24 11:53] VITALS: BP 70/00
[2018-11-24 12:17] LABS: BASO % 0.3 % (0.0-1.0); HEMATOCRIT 46.9 % (37.0-47.0); HEMOGLOBIN 14.5 g/dl (12.0-16.0); LYMPH # 1.5 10*3/uL (1.3-4.4); LYMPH % 10.2 % (27.0-41.0); MEAN CELL VOLUME 107.8 fl (81.0-99.0); MEAN CORPUSCULAR HGB 33.3 pg (27.0-31.0); MEAN CORPUSCULAR HGB CONC 30.9 g/dl (33.0-37.0); MEAN PLATELET VOLUME 10.2 fl (9.6-12.3); MONO # 1.4 10*3/uL (0.1-1.0); MONO % 9.1 % (3.0-9.0); NEUT % 79.7 % (47.0-73.0); PLATELET COUNT AUTOMATED 159 10*3/uL (130-400); RED BLOOD COUNT 4.35 10*6/uL (4.10-5.10); RED CELL DISTRI WIDTH 13.7 % (0-14.5)
[2018-11-24 12:28] LABS: ACT PARTIAL THROMBO TIME 30.1 SECONDS (20.0-32.1); INTERNATIONAL NORM RATIO 1.1 (2.0-3.5)
[2018-11-24 12:38] LABS: ALBUMIN 2.8 gm/dl (3.1-4.5); CREATININE 2.8 mg/dL (0.55-1.02); POTASSIUM 4.9 mmol/L (3.5-5.1); TOTAL PROTEIN 5.9 gm/dL (6.4-8.2)
[2018-11-24 12:39] LABS: TROPONIN I 0.019 ng/ml (<0.045)
[2018-11-24 12:44] LABS: THYROID STIM HORMONE (HS) 2.74 uIU/ml (0.358-4.75)
--- NOTE | 2018-11-24 12:46 | NUR ---
PATIENT LACTIC ACID IS 7.4 AT THIS TIME CALLED BY LAB CRITICAL DR BARRON NOTIFIED.
[2018-11-24 12:51] VITALS: BP 70/26
[2018-11-24 13:39] VITALS: BP 76/58
[2018-11-24 14:15] VITALS: BP 68/31
[2018-11-24] MEDS ORDERED: ARTIFICIAL TEAR30 M4 IO (14:46)
[2018-11-24] MEDS ORDERED: DEPAKOTE ER250 MG PO (14:47)
[2018-11-24] MEDS ORDERED: DULCOLAX10 M1 R (14:48)
[2018-11-24] MEDS ORDERED: EFFEXOR XR150 MG PO (14:50)
[2018-11-24] MEDS ORDERED: FEROSUL325 MG PO (14:51)
[2018-11-24] MEDS ORDERED: GAVISCON ES TA1 EACH PO (14:52)
[2018-11-24] MEDS ORDERED: HYDROXYZINE HCL25 MG PO (14:53)
[2018-11-24] MEDS ORDERED: MACRODANTIN50 MG PO (14:56)
[2018-11-24] MEDS ORDERED: MOM30 M1 PO (14:57)
[2018-11-24] MEDS ORDERED: NAPROXEN375 MG PO (14:58)
--- NOTE | 2018-11-24 15:00 | NUR ---
MSADMTime: +N A 83 year old FEMALE admitted to under services of KANE JOLLEY DO. Pt. arrived via bed from [place]. Chief complaint: DARK STOOLS. ANTONIO CABAN
[2018-11-24] MEDS ORDERED: PRESERVISION A1 EAC2 PO (15:02)
--- NOTE | 2018-11-24 15:05 | NUR ---
Med rec updated from list provided by Rafa Chamorro.
[2018-11-24 16:00] VITALS: BP 68/31
--- NOTE | 2018-11-24 16:53 | NUR ---
NOTIFIED DR. PATTERSON OF CRITICAL LAB VALUE.
[2018-11-24 20:00] VITALS: BP 99/40
[2018-11-25] VITALS: BP 133/65
[2018-11-25 08:00] VITALS: BP 175/78
[2018-11-25 13:00] VITALS: BP 99/85
[2018-11-25 16:23] VITALS: BP 62/39
[2018-11-25 20:00] VITALS: BP 99/40
--- NOTE | 2018-11-25 20:00 | NUR ---
PT REPOSITIONED AND CLEANE DUP IN BED BY THE AIDES. RESP-EASY AND REGULAR. SKIN PALE W/D. NO C/O AT THIS TIME. OXYGEN IN USE. CALL LIGHT IN REACH. BED ALARM ON.
--- NOTE | 2018-11-25 22:00 | NUR ---
SLEEPING IN BED. RESP-EASY AND REGULAR. CALL LIGHT IN REACH. BED ALARM ON.
[2018-11-26] VITALS: BP 118/90
--- NOTE | 2018-11-26 00:30 | NUR ---
RESTING IN BED WITH EYES CLOSED. RESP-EASY AND REGULAR. REPOSITIONED. CALL LIGHT IN REACH. SEE SHIFT ASSESSMENT. BED ALARM ON.
--- NOTE | 2018-11-26 03:26 | NUR ---
24 HR chart check completed.
--- NOTE | 2018-11-26 04:00 | NUR ---
SLEEPING IN BED. RESP-EASY AND REGULAR. CALL LIGHT IN REACH. BED ALARM ON.
--- NOTE | 2018-11-26 06:00 | NUR ---
RESTING IN BED PT SINGING RANDOM THINGS. CALL LIGHT IN REACH. BED ALARM ON.
[2018-11-26 08:02] VITALS: BP 112/56
--- NOTE | 2018-11-26 11:00 | NUR ---
[facility] MEETING WITH PT FAMILY TODAY FOR SERVICES. WILL CONTINUE TO FOLLOW.
[2018-11-26 12:04] VITALS: BP 100/45
== END 2018-11-26 14:53 | disposition hospice, home (50) | DRG 871 ==
LOC: ED 11:28 → EDHOLD 13:15 → 5E 13:15
PROVIDERS: Internal Medicine; ADMIT Emergency Medicine
DX: A41.9 Sepsis, unspecified organism (principal); R65.21 Severe sepsis with septic shock; N17.0 Acute kidney failure with tubular necrosis; K92.2 Gastrointestinal hemorrhage, unspecified; E44.0 Moderate protein-calorie malnutrition; F02.81 Dementia in other diseases classified elsewhere, unspecified severity, with behavioral disturbance; G30.9 Alzheimer's disease, unspecified; I48.91 Unspecified atrial fibrillation; I50.9 Heart failure, unspecified; J44.9 Chronic obstructive pulmonary disease, unspecified; I11.0 Hypertensive heart disease with heart failure; M81.0 Age-related osteoporosis without current pathological fracture; Z51.5 Encounter for palliative care; I95.9 Hypotension, unspecified; D75.89 Other specified diseases of blood and blood-forming organs; E87.8 Other disorders of electrolyte and fluid balance, not elsewhere classified; Z66 Do not resuscitate; Z87.01 Personal history of pneumonia (recurrent); Z90.710 Acquired absence of both cervix and uterus; Z87.891 Personal history of nicotine dependence; Z88.8 Allergy status to other drugs, medicaments and biological substances; Z79.899 Other long term (current) drug therapy; Z82.49 Family history of ischemic heart disease and other diseases of the circulatory system; Z82.0 Family history of epilepsy and other diseases of the nervous system; Z80.8 Family history of malignant neoplasm of other organs or systems; Z68.23 Body mass index [BMI] 23.0-23.9, adult

== ENCOUNTER 2018-11-26 14:55 | Inpatient (IN) | payer OTHER ==
[~2018-11-26] VITALS: Ht 162.6 cm; Wt 58.7 kg
[~2018-11-26 14:55] MED LIST changes: +ARTIFICIAL TEAR30 M4 IO; +DEPAKOTE ER250 MG PO; +DULCOLAX10 M1 R; +EFFEXOR XR150 MG PO; +FEROSUL325 MG PO; +GAVISCON ES TA1 EACH PO; +HYDROXYZINE HCL25 MG PO; +MACRODANTIN50 MG PO; +MOM30 M1 PO; +NAPROXEN375 MG PO; +PRESERVISION A1 EAC2 PO
[2018-11-26 15:10] VITALS: BP 109/55
[2018-11-26 16:00] VITALS: BP 117/66
[2018-11-26 20:00] VITALS: BP 96/38
--- NOTE | 2018-11-26 20:00 | NUR ---
PT REPOSITIONED IN BED. AWAKE, ALERT, CONFUSED. OXYGEN IN USE. NO SIGNS OF ACUTE DISTRESS NOTED. CALL LIGHT IN REACH. BED ALARM ON.
[2018-11-26 21:00] VITALS: BP 100/50
--- NOTE | 2018-11-26 22:00 | NUR ---
RESTING IN BED WITH EYES CLOSED. RESP-EASY AND REGULAR. CALL LIGHT IN REACH. CALL LIGHT IN REACH.
[2018-11-27] VITALS: BP 98/67
--- NOTE | 2018-11-27 00:15 | NUR ---
PT RESTING IN BED WITH EYES CLOSED. RESP-EASY AND REGULAR. OXYGEN IN USE. CALL LIGHT IN REACH. BED ALARM ON.
--- NOTE | 2018-11-27 04:00 | NUR ---
RESTING IN BED WITH EYES CLOSED. RESP-EASY AND REGULAR. CALL LIGHT IN REACH. BED ALAMR ON.
--- NOTE | 2018-11-27 06:00 | NUR ---
REPOSITIONED IN BED. RESP-EASY AND REGULAR. NO C/O AT THIS TIME. CALL LIGHT IN REACH.
[2018-11-27 08:00] VITALS: BP 132/48
--- NOTE | 2018-11-27 13:02 | NUR ---
PT IS UNDER HOSPICE SERVICES WITH [facility]. WILL CONTINUE TO FOLLOW.
--- NOTE | 2018-11-27 16:59 | NUR ---
PT FAMILY AT BEDSIDE, PT SINGING NONSENSICAL, RESTLESS BEHAVIORS NOTED, AGITATION WITH TACTILE INTERACTIONS. MORPHINE GIVEN AT THIS TIME
[2018-11-28] VITALS: BP 88/47
[2018-11-28 08:00] VITALS: BP 95/81
--- NOTE | 2018-11-28 09:33 | NUR ---
HOSPICE NURSE IN TO SEE PATIENT.
--- NOTE | 2018-11-28 10:00 | NUR ---
PATIENT SLEEPING QUIETLY IN BED. NO DISTRESS NOTED. RESPIRATIONS EASY, REGULAR. NO S/S OF PAIN/DISCOMFORT AT THIS TIME. WILL CONTINUE TO MONITOR.
[2018-11-28 12:00] VITALS: BP 102/59
--- NOTE | 2018-11-28 12:15 | NUR ---
PT SLEEPING. DOES NOT AROUSE TO NAME OR VIA TACTILE STIMULI. NO S/S OF PAIN/DISCOMFORT. WILL CONTINUE TO MONITOR. 02 IN USE. CALL LIGHT WITHIN REACH.
--- NOTE | 2018-11-28 15:35 | NUR ---
FAMILY AT BEDSIDE. PT AWAKE AT THIS TIME. PT RESTING COMFORTABLY. NO DISTRESS NOTED. 02 IN USE. WILL CONTINUE TO MONITOR.
[2018-11-28 16:00] VITALS: BP 101/73
[2018-11-28 20:00] VITALS: BP 94/42
--- NOTE | 2018-11-28 23:00 | NUR ---
PATIENT MEDICATED WITH MORPHINE 20MG SL FOR SIGNS AND SYMPTOMS OF PAIN. WILL CONTINUE TO MONITOR. CALL LIGHT IN REACH.
[2018-11-29] VITALS: BP 117/98
[2018-11-29 08:00] VITALS: BP 114/86
--- NOTE | 2018-11-29 08:33 | NUR ---
PT SINGING AND RESTING COMFORTABLY. VISITOR AT BEDSIDE. VSS. NO S/S OF PAIN/DISCOMFORT. WILL CONTINUE TO MONITOR.
--- NOTE | 2018-11-29 10:10 | NUR ---
HOSPICE NURSE IN TO SEE PATIENT.
[2018-11-29 12:00] VITALS: BP 92/54
--- NOTE | 2018-11-29 12:33 | NUR ---
PATIENT CONTINUES TO REST QUIETLY. NO DISTRESS NOTED. NO S/S OF PAIN/DISCOMFORT. WILL CONTINUE TO MONITOR.
--- NOTE | 2018-11-29 14:48 | NUR ---
PT SLEEPING. NO S/S OF DISCOMFORT. WILL CONTINUE TO MONITOR.
[2018-11-29 16:00] VITALS: BP 100/54
--- NOTE | 2018-11-29 17:45 | NUR ---
PT MEDICATED WITH SL ATIVAN PER PRN ORDER FOR S/S OF AGITATION. WILL MONITOR EFFECTIVENESS. DAUGHTER AT BEDSIDE.
--- NOTE | 2018-11-29 17:50 | NUR ---
MORPHINE SL 10MG GIVEN PER PRN ORDER FOR S/S PAIN/DISCOMFORT. WILL MONITOR EFFECTIVENESS.
--- NOTE | 2018-11-29 18:45 | NUR ---
EARLIER MEDS EFFECTIVE AT THIS TIME. PT SLEEPING QUIETLY IN BED. NO DISTRESS NOTED. WILL CONTINUE TO MONITOR.
[2018-11-29 20:10] VITALS: BP 88/49
[2018-11-30] VITALS: BP 99/51
[2018-11-30 08:00] VITALS: BP 116/86
--- NOTE | 2018-11-30 09:39 | NUR ---
MEDICATED WITH MORPHINE PER ORDER.
--- NOTE | 2018-11-30 11:36 | NUR ---
EMANUEL RN FROM [facility] HERE AND RECOMMENDS PATIENT GO BACK TO [facility] AND THEY WILL FOLLOW THERE. EMANUEL DID SPEAK WITH DAUGHTER WHO IS IN AGREEMENT. DR. WALKER AWARE.
--- NOTE | 2018-11-30 16:13 | NUR ---
CALLED DR. WALKER AGAIN REGARDING RECOMENDATION OF HOSPICE NURSE TO SEND BACK TO [place].
--- NOTE | 2018-11-30 16:19 | NUR ---
Spoke to foster care social worker, patient is a LTC resident at [facility]. Asked Nadege at [facility] if patient was able to return to [facility] with hospice today. Awaiting return call.
--- NOTE | 2018-11-30 16:25 | NUR ---
Spoke to Nadege at [facility]. Patient is good to go back to [facility] with [facility]. Notified Dr. Brar.
--- NOTE | 2018-11-30 16:35 | NUR ---
MEDICATED WITH ATIVAN PER ORDER.
--- NOTE | 2018-11-30 17:36 | NUR ---
PATIENT GOING BACK TO [facility] WITH HOSPICE, EMANUEL WU AWARE AND HAS NOTIFIED RON BANEGAS.
--- NOTE | 2018-11-30 18:08 | NUR ---
PATIENT DISCHARGEDTO [place] [facility].
--- NOTE | 2018-11-30 18:10 | NUR ---
NURSE TO NURSE REPORT GIVEN.
== END 2018-11-30 18:08 | DRG 871 ==
LOC: 5E 14:55
PROVIDERS: ADMIT Emergency Medicine
DX: A41.9 Sepsis, unspecified organism (principal); R65.21 Severe sepsis with septic shock; N17.0 Acute kidney failure with tubular necrosis; E43 Unspecified severe protein-calorie malnutrition; K92.2 Gastrointestinal hemorrhage, unspecified; F02.81 Dementia in other diseases classified elsewhere, unspecified severity, with behavioral disturbance; Z51.5 Encounter for palliative care; D75.89 Other specified diseases of blood and blood-forming organs; E87.8 Other disorders of electrolyte and fluid balance, not elsewhere classified; G30.9 Alzheimer's disease, unspecified; I48.91 Unspecified atrial fibrillation; I50.9 Heart failure, unspecified; J44.9 Chronic obstructive pulmonary disease, unspecified; I11.0 Hypertensive heart disease with heart failure; M81.0 Age-related osteoporosis without current pathological fracture; Z90.710 Acquired absence of both cervix and uterus; Z82.49 Family history of ischemic heart disease and other diseases of the circulatory system; Z82.0 Family history of epilepsy and other diseases of the nervous system; Z88.8 Allergy status to other drugs, medicaments and biological substances; Z68.23 Body mass index [BMI] 23.0-23.9, adult